=== PATIENT | female | born 1955 | race Caucasian/White ===

== ENCOUNTER 2019-04-11 07:57 | Emergency (ER) | payer OTHER ==
[~2019-04-11] VITALS: Ht 157.5 cm; Wt 120.5 kg
[~2019-04-11 07:57] MED LIST: AMLO10TA7 PO; COUMADIN; MEDS UNVERIFIED; METF1000 PO
[2019-04-11] MEDS ORDERED: TRAM50TA4 PO (08:32)
[2019-04-11] MEDS ORDERED: WARF1 PO (08:34)
[2019-04-11] MEDS ORDERED: LOSA50TA64 PO (08:39)
[2019-04-11] MEDS ORDERED: CARV6 PO (08:39)
[2019-04-11] MEDS ORDERED: BENZ-51 PO (08:39)
[2019-04-11] MEDS ORDERED: HYDROCODONE/ACETAMINOPHEN 5-325 MG TABLET PO ONE (08:45)
[2019-04-11] MEDS ORDERED: PERTUSS(ACELL),DIPH,TET VAC/PF 0.5 ML VIAL IM ONE (08:45)
[2019-04-11 12:20] VITALS: BP 146/3
== END 2019-04-11 12:32 | disposition home or self-care (01) ==
LOC: EMS 08:00
DX: S92.902A Unspecified fracture of left foot, initial encounter for closed fracture (principal); S91.012A Laceration without foreign body, left ankle, initial encounter; S81.812A Laceration without foreign body, left lower leg, initial encounter; E11.9 Type 2 diabetes mellitus without complications; E78.00 Pure hypercholesterolemia, unspecified; Z90.49 Acquired absence of other specified parts of digestive tract; Z86.718 Personal history of other venous thrombosis and embolism; Z79.899 Other long term (current) drug therapy; Z98.890 Other specified postprocedural states; Z88.1 Allergy status to other antibiotic agents; V09.9XXA Pedestrian injured in unspecified transport accident, initial encounter; Y93.89 Activity, other specified; Y92.89 Other specified places as the place of occurrence of the external cause; Y99.8 Other external cause status
CPT/HCPCS: 29515; 90471; 90715